=== PATIENT | female | born 1965 | race African-American/Black ===

== ENCOUNTER 2016-09-15 19:53 | Emergency (ER) | payer OTHER ==
[~2016-09-15] VITALS: Ht 167.6 cm; Wt 112.3 kg
[~2016-09-15 19:53] MED LIST: METO50 PO; QUET100T PO; TNFMISC
[2016-09-15 21:19] LABS: EOSINOPHILS % (AUTO) 0.7 % (1.0-6.0); HEMATOCRIT 44.3 % (36-46); HEMOGLOBIN 14.5 g/dL (12.0-16.0); LYMPHOCYTES # (AUTO) 0.9 K/uL (1.0-4.8); LYMPHOCYTES % (AUTO) 9.3 % (22.0-44.0); MEAN CORPUSCULAR HEMOGLOBIN 29.8 pg (26.0-34.0); MEAN CORPUSCULAR HGB CONC 32.6 G/dL (31.0-37.0); MEAN CORPUSCULAR VOLUME 91 fL (80-100); MONOCYTES # (AUTO) 0.1 K/uL (0.1-1.0); MONOCYTES % (AUTO) 1.5 % (2.0-9.0); NEUTROPHILS # (AUTO) 8.7 K/uL (1.8-7.7); PLATELET COUNT (AUTO) 282 K/uL (150-450); RED BLOOD CELL COUNT(AUTO) 4.86 MIL/uL (4.00-5.20); WHITE BLOOD COUNT (AUTO) 9.8 K/uL (4.5-11.0)
[2016-09-15 21:20] LABS: NEUTROPHILS % (AUTO) 88.5 % (40.0-70.0)
[2016-09-15 21:28] LABS: CALCIUM, TOTAL 9.6 mg/dL (8.8-10.5); CREATININE 1.17 mg/dL (0.60-1.30); POTASSIUM 4.1 mmol/L (3.5-5.1)
[2016-09-15 21:34] LABS: ALBUMIN 3.4 g/dL (3.4-5.0); BILIRUBIN,TOTAL 0.4 mg/dL (0.1-1.0); TOTAL PROTEIN, SERUM 7.9 g/dL (6.4-8.2)
[2016-09-15] MEDS ORDERED: SODIUM CHLORIDE 0.9% 2,000 ML IV ONE (22:00)
[2016-09-15] MEDS ORDERED: HYDROmorphone 2 MG/ML SYRINGE IVP ONE (22:00)
[2016-09-15] MEDS ORDERED: BARIUM SULFATE 0.1% SUSPENSION 450 ML BOTTLE PO ONE (22:00)
[2016-09-15] MEDS ORDERED: ONDANSETRON HCL 4 MG/2 ML VIAL IVP ONE (22:00)
[2016-09-15] MEDS ORDERED: IOVERSOL 320 MG/ML 100 ML VIAL ONE (22:12)
[2016-09-16 01:55] LABS: APPEARANCE,URINE CLEAR (CLEAR); GLUCOSE, URINE (UA) NEGATIVE (NEGATIVE); KETONES,URINE NEGATIVE (NEGATIVE); LEUKOCYTE ESTERASE ,URINE NEGATIVE (NEGATIVE); OCCULT BLOOD,URINE TRACE (NEGATIVE); PH,URINE 5.5 (5.0-8.0); PROTEIN,URINE NEGATIVE (NEGATIVE)
[2016-09-16 01:56] LABS: ADD UA MICROSCOPIC YES
[2016-09-16 02:03] LABS: RBC,URINE 0-2 /HPF (0-2); WBC,URINE 0-2 /HPF (0-5)
[2016-09-16 02:04] LABS: SQUAMOUS EPITHELIAL CELL,UR Few /LPF (None Seen)
[2016-09-16 02:32] VITALS: BP 145/90
== END 2016-09-16 03:00 | disposition home or self-care (01) ==
LOC: EMS 19:58
DX: K52.9 Noninfective gastroenteritis and colitis, unspecified (principal); I10 Essential (primary) hypertension; F17.210 Nicotine dependence, cigarettes, uncomplicated
CPT/HCPCS: 36415; 71010; 74177; 80053; 81001; 83690; 84484; 85025; 93005; 96361; 96374; 96375; 99285; J1170; J2405; J7030; Q9967; Z7610

== ENCOUNTER 2019-02-14 12:20 | Emergency (ER) | payer MEDICAID, OTHER ==
[~2019-02-14] VITALS: Ht 170.2 cm; Wt 108.6 kg
[2019-02-14] MEDS ORDERED: ALBUTEROL SULFATE HFA 90 MCG/PUFF 8 GM INHALER IH ONE (13:15)
[2019-02-14] MEDS ORDERED: LISINOPRIL 10 MG TABLET PO ONE (13:15)
[2019-02-14] MEDS ORDERED: METOPROLOL TARTRATE 50 MG TABLET PO ONE (13:15)
[2019-02-14] MEDS ORDERED: BENZONATATE 100 MG CAPSULE PO ONE (13:15)
[2019-02-14] MEDS ORDERED: ATOR10TA84 PO (14:47)
[2019-02-14] MEDS ORDERED: LISI-662 PO (14:49)
[2019-02-14 14:50] VITALS: BP 140/89
== END 2019-02-14 14:58 | disposition home or self-care (01) ==
LOC: EMS 12:22
DX: J40 Bronchitis, not specified as acute or chronic (principal); I10 Essential (primary) hypertension; F31.9 Bipolar disorder, unspecified; F20.9 Schizophrenia, unspecified; F17.210 Nicotine dependence, cigarettes, uncomplicated; Z79.899 Other long term (current) drug therapy
CPT/HCPCS: 94640; J3535

== ENCOUNTER 2021-10-14 05:22 | Inpatient (IN) | payer MEDICAID ==
[~2021-10-14] VITALS: Ht 170.2 cm; Wt 110.2 kg
[~2021-10-14 05:22] MED LIST changes: +ATOR10TA84 PO; +LISI-894 PO; -TNFMISC
[2021-10-14 05:40] LABS: BASOPHILS % (AUTO) 0.8 % (0.0-2.0); EOSINOPHILS % (AUTO) 0.9 % (1.0-6.0); HEMATOCRIT 39.9 % (36-46); HEMOGLOBIN 13.4 g/dL (12.0-16.0); LYMPHOCYTES # (AUTO) 1.9 K/uL (1.0-4.8); LYMPHOCYTES % (AUTO) 40.7 % (22.0-44.0); MEAN CORPUSCULAR HEMOGLOBIN 30.2 pg (26.0-34.0); MEAN CORPUSCULAR HGB CONC 33.6 G/dL (31.0-37.0); MEAN CORPUSCULAR VOLUME 90 fL (80-100); MONOCYTES # (AUTO) 0.5 K/uL (0.1-1.0); MONOCYTES % (AUTO) 10.9 % (2.0-9.0); NEUTROPHILS # (AUTO) 2.1 K/uL (1.8-7.7); NEUTROPHILS % (AUTO) 46.7 % (40.0-70.0); PLATELET COUNT (AUTO) 255 K/uL (150-450); RED BLOOD CELL COUNT(AUTO) 4.45 MIL/uL (4.00-5.20); RED CELL DISTRIBUTION WIDTH 14.6 % (11.5-14.5)
[2021-10-14 05:50] LABS: CALCIUM, TOTAL 9.6 mg/dL (8.8-10.5); CREATININE 1.28 mg/dL (0.60-1.30); POTASSIUM 3.9 mmol/L (3.5-5.1)
[2021-10-14 05:56] LABS: ALBUMIN 3.3 g/dL (3.4-5.0); BILIRUBIN,TOTAL 0.4 mg/dL (0.1-1.0); TOTAL PROTEIN, SERUM 7.6 g/dL (6.4-8.2)
[2021-10-14 06:06] LABS: PLATELET MORPHOLOGY COMMENT LARGE PLTS PRESENT
[2021-10-14] MEDS ORDERED: ASPIRIN 81 MG CHEWABLE TABLET PO ONE (06:30)
[2021-10-14 06:59] LABS: COVID AG,FIA SOURCE NASOPHARYNGEAL
[2021-10-14] MEDS ORDERED: CLOPIDOGREL BISULFATE 75 MG TABLET PO ONE (07:00)
[2021-10-14] MEDS ORDERED: CLOPIDOGREL BISULFATE 300 MG TABLET PO ONE (07:00)
[2021-10-14] MEDS ORDERED: ACETAMINOPHEN 325 MG TABLET PO PRN ×2 (08:15)
[2021-10-14] MEDS ORDERED: ONDANSETRON HCL 4 MG/2 ML VIAL IVP PRN (08:15)
[2021-10-14] MEDS ORDERED: OxyCODONE HCL/ACETAMINOPHEN 5-325 MG TABLET PO PRN (08:15)
[2021-10-14] MEDS ORDERED: ATORVASTATIN CALCIUM 40 MG TABLET PO SCH (09:00)
[2021-10-14] MEDS: DOCUSATE SODIUM 100 MG CAPSULE PO SCH ×2 (09:00→20:39)
[2021-10-14 10:15] VITALS: BP 153/95
[2021-10-14] MEDS: ATORVASTATIN CALCIUM 40 MG TABLET PO SCH (10:30)
[2021-10-14] MEDS: AmLODIPine BESYLATE 5 MG TABLET PO SCH (10:31)
[2021-10-14] MEDS: FAMOTIDINE 20 MG TABLET PO SCH (10:31)
[2021-10-14 11:50] VITALS: BP 139/83
[2021-10-14 15:05] VITALS: BP 136/92
[2021-10-14] MEDS: HEPARIN SODIUM,PORCINE 5,000 UNITS/ML VIAL SQ SCH (17:13)
[2021-10-14 19:44] VITALS: BP 145/76
[2021-10-14 23:54] VITALS: BP 150/83
[2021-10-15] MEDS: HEPARIN SODIUM,PORCINE 5,000 UNITS/ML VIAL SQ SCH ×3 (00:18→15:48)
[2021-10-15 04:17] VITALS: BP 136/68
[2021-10-15 07:30] VITALS: BP 131/81
[2021-10-15 07:37] LABS: AMPHET/METH SCREEN,URINE POSITIVE (NEGATIVE); BARBITURATE SCREEN, URINE NEGATIVE (NEGATIVE); BENZODIAZEPINES SCREEN,URINE NEGATIVE (NEGATIVE); CANNABINOID SCREEN,URINE NEGATIVE (NEGATIVE); COCAINE SCREEN,URINE NEGATIVE (NEGATIVE); METHADONE SCREEN, URINE NEGATIVE (NEGATIVE); OPIATE SCREEN,URINE NEGATIVE (NEGATIVE); PHENCYCLIDINE SCREEN,URINE NEGATIVE (NEGATIVE)
[2021-10-15] MEDS: DOCUSATE SODIUM 100 MG CAPSULE PO SCH ×2 (09:00→20:38)
[2021-10-15] MEDS: ATORVASTATIN CALCIUM 40 MG TABLET PO SCH (09:13)
[2021-10-15] MEDS: ASPIRIN 81 MG CHEWABLE TABLET PO SCH (09:13)
[2021-10-15] MEDS: CLOPIDOGREL BISULFATE 75 MG TABLET PO SCH (09:13)
[2021-10-15] MEDS: AmLODIPine BESYLATE 5 MG TABLET PO SCH (09:13)
[2021-10-15] MEDS: FAMOTIDINE 20 MG TABLET PO SCH (09:13)
[2021-10-15 10:59] VITALS: BP 135/79
[2021-10-15 16:05] VITALS: BP 132/80
[2021-10-15 20:02] VITALS: BP 111/83
[2021-10-16 00:14] VITALS: BP 153/98
[2021-10-16 04:51] VITALS: BP 129/76
[2021-10-16 07:19] VITALS: BP 126/82
[2021-10-16] MEDS: HEPARIN SODIUM,PORCINE 5,000 UNITS/ML VIAL SQ SCH ×2 (08:00)
[2021-10-16] MEDS: ATORVASTATIN CALCIUM 40 MG TABLET PO SCH (09:09)
[2021-10-16] MEDS: CLOPIDOGREL BISULFATE 75 MG TABLET PO SCH (09:10)
[2021-10-16] MEDS: FAMOTIDINE 20 MG TABLET PO SCH (09:10)
[2021-10-16] MEDS: AmLODIPine BESYLATE 5 MG TABLET PO SCH (09:10)
[2021-10-16] MEDS: DOCUSATE SODIUM 100 MG CAPSULE PO SCH (09:10)
[2021-10-16] MEDS: ASPIRIN 81 MG CHEWABLE TABLET PO SCH (09:11)
[2021-10-16] MEDS ORDERED: ASPI81TA87 PO (10:20)
[2021-10-16] MEDS ORDERED: ATOR40TA28 PO (10:20)
[2021-10-16] MEDS ORDERED: CLOP75TA60 PO (10:21)
[2021-10-16] MEDS ORDERED: AMLO-257 PO (10:21)
== END 2021-10-16 12:00 | disposition home or self-care (01) | DRG 47 ==
LOC: EMS 05:25 → 5S 08:45
PROVIDERS: ADMIT Internal Medicine; ATTEND Internal Medicine
DX: G45.9 Transient cerebral ischemic attack, unspecified (principal); E66.9 Obesity, unspecified; F15.90 Other stimulant use, unspecified, uncomplicated; F17.210 Nicotine dependence, cigarettes, uncomplicated; F20.9 Schizophrenia, unspecified; I10 Essential (primary) hypertension; Z20.822 Contact with and (suspected) exposure to COVID-19; F31.9 Bipolar disorder, unspecified; G89.29 Other chronic pain; F99 Mental disorder, not otherwise specified; Z59.00 Homelessness unspecified; Z86.73 Personal history of transient ischemic attack (TIA), and cerebral infarction without residual deficits; Z68.38 Body mass index [BMI] 38.0-38.9, adult; Z88.6 Allergy status to analgesic agent
CPT/HCPCS: 70496; 70498; 70551; 71045; 80053; 80307; 82948; 84484; 85025; 86850; 86900; 86901; 92610; 93005; 93306; 97162; 97166; 97530; 97535; 99291; G0378; G0480; J1644; 36415-L1; 36415-TC; 70450; 70450-TC